=== PATIENT | male | born 1945 | race Caucasian/White ===

== ENCOUNTER 2023-08-05 11:07 | Day surgery (SDC) | payer OTHER ==
[2023-08-05] MEDS: Ringers Lactate 1,000 ML IV ONE (11:50)
[2023-08-05 12:04] LABS: Absolute Basophils 0.1 K/uL (0-0.5); Absolute Eosinophils 0.1 K/uL (0-0.5); Absolute Lymphocytes (CBC) 1.8 K/uL (0.7-4.9); Absolute Monocytes 2.1 K/uL (0.1-1.3); Absolute Neutrophil 6.5 K/uL (1.8-8.0); Eosinophils % 0.9 % (0-4.4); Hematocrit 40.4 % (39.6-49.0); Hemoglobin 13.4 g/dL (13.6-17.9); Lymphocytes % 17.3 % (15.3-44.8); MCH 32.6 pg (27.0-35.0); MCHC 33.1 g/dL (32.0-36.0); MCV 98.7 fL (80-100); MPV 9.9 fL (7.6-11.3); Neutrophils % 60.8 % (41.7-73.7); Platelets 176 thou/uL (152-406); Red Cell Distribution Width 14.7 % (12.1-15.2)
[2023-08-05 12:09] LABS: PT Prothrombin Time 13.3 SECONDS (9.5-12.5); PTT, Activated Partial Thromb 28.1 SECONDS (24.3-36.9); Protime INR 1.22
[2023-08-05 12:18] LABS: Anion Gap 10.5 mEq/L (5.0-15.0); Potassium 4.5 mEq/L (3.5-5.1)
[2023-08-05 12:27] LABS: Platelet Estimate ADEQ; White Blood Cell Scan OK (OK)
[2023-08-05 12:28] LABS: Atypical Lymphocytes 2 %; Band Neutrophils 3 % (0-1); Blood Morphology Comment NOT SEEN (NOT SEEN); Differential Total Cells Count 100; Eosinophils 1 % (0-3); Lymphocytes 21 % (15-42); Monocytes 4 % (0-10); Segmented Neutrophils 69 % (40-80)
[2023-08-05] MEDS ORDERED: ONDANSETRON 4 MG/2 ML VIAL ONE (12:55)
[2023-08-05] MEDS ORDERED: propofoL 200 MG/20 ML VIAL IV ONE (12:55)
[2023-08-05] MEDS ORDERED: LIDOCAINE 2% MPF 5 ML VIAL ONE (12:55)
[2023-08-05] MEDS ORDERED: FENTANYL CITR 100 MCG/2 ML ONE (12:55)
[2023-08-05] MEDS: CEFAZOLIN SODIUM 2 GM/VIAL ONE (13:44)
[2023-08-05] MEDS ORDERED: dexAMETHasone 4 MG/ML VIAL ONE (13:48)
[2023-08-05] MEDS ORDERED: EPHEDRINE SULF 50 MG/ML VIAL ONE (13:51)
[2023-08-05] MEDS: LIDOCAINE HCL/EPINEPHRINE 20 ML MDV ONE (13:55)
--- NOTE | 2023-08-05 14:05 | P.OP ---
Preoperative diagnosis: LEFT Elbow Skin Cancer Postoperative diagnosis: LEFT Elbow Skin Cancer Primary procedure: Wide Local Excision of LEFT Elbow Skin Cancer Anesthesia: MAC + Local Estimated blood loss: <2cc Specimen: skin lesion Findings: ~ 6cm x 4cm ellipse of LEFT Elbow Skin Cancer Complications: None Transferred to: Recovery Room Condition: Good
[2023-08-05 16:17] VITALS: BP 137/67; TEMP 97.4; O2SAT 100
--- NOTE | 2023-08-06 01:22 | OP ---
Date of Procedure: 08/05/2023 Surgeon: Marshal Duran MD, Preoperative Diagnosis: Left elbow skin cancer. Postoperative Diagnosis: Left elbow skin cancer. Procedure Performed: Wide local excision of left elbow skin cancer. Anesthesia: MAC plus local with 0.25% Marcaine. Estimated Blood Loss: Less than 2 cc. Specimen: Skin lesion. Findings: Approximately 6 cm x 4 cm ellipse of left elbow skin consistent with skin cancer with exop hytic changes. Complications: None. Disposition: The patient was transferred to recovery room in good condition. Procedure In Detail: After informed consent was obtained, the patient was brought to the operating r oom, prepped and draped in the usual sterile fashion. After adequate anesthesia achieved, I demarcat ed an area of the left elbow based around a previous biopsy site getting wider margins around the are a of suspected skin cancer, approximately 1 cm margin circumferentially around this skin lesion as th ere was patchy roughness around this consistent with a possible spreading superficial skin cancer. A t this point, I anesthetized the skin and made a sharp incision circumferentially around in an ellipt ical fashion using a 15 blade down to subcutaneous tissues, into the subcutaneous fat. Ultimately, I removed the specimen in its entirety by approximately 6 cm x 4 cm. I placed marking sutures and sen t this off for pathologic examination. The area was rinsed at this point and irrigated with sterile saline. Hemostasis was easily achieved at this point with minimal electrocautery. I then partially reapproximated the skin edges using 3-0 nylon suture in an interrupted fashion and a sterile dressing was placed over top. The patient tolerated procedure without incident or complications, transferred to PACU in good condition. All counts were correct at the end of the case. LUANNE/MODL Voice ID: [id number] Report ID: [id number]
== END 2023-08-05 15:45 | disposition home or self-care (01) ==
LOC: OR 11:07
PROVIDERS: ATTEND Surgery
PROC: 0HBEXZZ Excision of Left Lower Arm Skin, External Approach (ICD-10-PCS; principal; 2023-08-05 13:15)
DX: C44.629 Squamous cell carcinoma of skin of left upper limb, including shoulder (principal); L57.0 Actinic keratosis
CPT/HCPCS: 11606; 93005; 85025; 80048; 36415; 85610; 88305; 85730; J2704; J1100; J2001; J3010; J2405; J7120